=== PATIENT | female | born 1965 | race Caucasian/White ===

== ENCOUNTER 2020-06-14 16:30 | Emergency (ER) | payer SELFPAY ==
[~2020-06-14] VITALS: Ht 167.6 cm; Wt 86.4 kg
[2020-06-14 16:36] VITALS: BP 157/80
[2020-06-14] MEDS ORDERED: PROPARACAINE OPHTH 0.5%, 15ML EACHEYE ONE (17:00)
[2020-06-14] MEDS ORDERED: FLUORESCEIN OPHTHALMIC 1 MG STRIP EACHEYE ONE (17:00)
[2020-06-14] MEDS ORDERED: PROPARACAINE OPHTH 0.5%, 15ML ONE (17:18)
[2020-06-14] MEDS ORDERED: FLUORESCEIN OPHTHALMIC 1 MG STRIP ONE (17:19)
== END 2020-06-14 18:51 | disposition home or self-care (01) ==
LOC: ED 18:00
DX: H10.11 Acute atopic conjunctivitis, right eye (principal); R51.9 Headache, unspecified; H57.12 Ocular pain, left eye
CPT/HCPCS: 99283